=== PATIENT | male | born 1950 | race Caucasian/White ===

== ENCOUNTER 2021-06-08 17:03 | Outpatient (REF) | payer OTHER, SELFPAY ==
[2021-06-08 21:47] LABS: ALT 22 U/L (16-63); AST 14 U/L (15-37); Albumin 4.1 g/dL (3.4-5.0); Alkaline Phosphatase 119 U/L (46-116); Anion Gap 3.1 mmol/L (3-11); BUN 19 mg/dL (7-18); Bilirubin, Total 0.6 mg/dL (0.2-1.0); CO2 30.9 mmol/L (21.0-32.0); CREATININE 0.8 mg/dL (0.70-1.30); Calcium 9.4 mg/dL (8.5-10.1); Calculated LDL 48 mg/dL (<100); Chloride 108 mmol/L (98-107); Cholesterol 101 mg/dL (<200); Glucose 90 mg/dL (74-106); HDL Cholesterol 37 mg/dL (40-60); Potassium 4.1 mmol/L (3.5-5.1); Sodium 142 mmol/L (136-145); Triglyceride 84 mg/dL (<150)
== END 2021-06-08 17:04 | disposition home or self-care (01) ==
LOC: NCHCN 17:03
PROVIDERS: PCP Nurse Practitioner Family; Visit Provider Nurse Practitioner Family
DX: E78.5 Hyperlipidemia, unspecified (principal); Z79.899 Other long term (current) drug therapy
CPT/HCPCS: 80053; 80061

== ENCOUNTER 2021-09-14 18:49 | Outpatient (REF) | payer MEDICARE, SELFPAY ==
[2021-09-14 22:20] LABS: ALT 36 U/L (16-63); AST 23 U/L (15-37); Albumin 4.2 g/dL (3.4-5.0); Alkaline Phosphatase 103 U/L (46-116); Bilirubin, Direct 0.2 mg/dL (0.0-0.2); Bilirubin, Total 0.7 mg/dL (0.2-1.0); GGT 32 U/L (15-85)
[2021-09-14 22:38] LABS: Vitamin D 25 Total 6.7 ng/mL (30-100)
== END 2021-09-14 18:50 | disposition home or self-care (01) ==
LOC: NCHCN 18:49
PROVIDERS: PCP Nurse Practitioner Family; Visit Provider Nurse Practitioner Family
DX: R74.8 Abnormal levels of other serum enzymes (principal); E83.39 Other disorders of phosphorus metabolism
CPT/HCPCS: 80076; 82306; 82977

== ENCOUNTER 2021-11-13 16:00 | Outpatient (REF) | payer MEDICARE, SELFPAY ==
[2021-11-13 22:11] LABS: Vitamin D 25 Total 24.9 ng/mL (30-100)
== END 2021-11-13 16:01 | disposition home or self-care (01) ==
LOC: NCHCN 16:00
PROVIDERS: PCP Nurse Practitioner Family; Visit Provider Nurse Practitioner Family
DX: E55.9 Vitamin D deficiency, unspecified (principal)
CPT/HCPCS: 82306

== ENCOUNTER 2022-06-25 17:46 | Outpatient (REF) | payer MEDICARE, SELFPAY ==
[2022-06-25 21:04] LABS: ALT 18 U/L (16-63); AST 14 U/L (15-37); Albumin 4.1 g/dL (3.4-5.0); Alkaline Phosphatase 93 U/L (46-116); Anion Gap 6.7 mmol/L (3-11); BUN 18 mg/dL (7-18); Bilirubin, Total 0.4 mg/dL (0.2-1.0); CO2 29.3 mmol/L (21.0-32.0); CREATININE 0.8 mg/dL (0.70-1.30); Calcium 9.7 mg/dL (8.5-10.1); Calculated LDL 50 mg/dL (<100); Chloride 108 mmol/L (98-107); Cholesterol 104 mg/dL (<200); Estimated GFR 93.45 (mL/min/1.73m2); Glucose 85 mg/dL (74-106); HDL Cholesterol 40 mg/dL (40-60); Potassium 4.3 mmol/L (3.5-5.1); Sodium 144 mmol/L (136-145); Total Protein 7.1 g/dL (6.4-8.2); Triglyceride 74 mg/dL (<150)
[2022-06-26 22:25] LABS: PSA, Diagnostic 14.7 ng/mL (<=6.5)
== END 2022-06-25 17:47 | disposition home or self-care (01) ==
LOC: NCHCN 17:46
PROVIDERS: PCP Nurse Practitioner Family; Visit Provider Nurse Practitioner Family
DX: E78.5 Hyperlipidemia, unspecified (principal); R97.20 Elevated prostate specific antigen [PSA]
CPT/HCPCS: 80053; 80061; 84153

== ENCOUNTER 2023-01-02 10:59 | Outpatient (REF) | payer MEDICARE, SELFPAY ==
[2023-01-02 22:17] LABS: PSA, Diagnostic 10.8 ng/mL (<=6.5)
== END 2023-01-02 11:00 | disposition home or self-care (01) ==
LOC: NCHCN 10:59
PROVIDERS: Family Medicine; PCP Nurse Practitioner Family; Visit Provider Family Medicine
DX: R97.20 Elevated prostate specific antigen [PSA] (principal)
CPT/HCPCS: 84153

== ENCOUNTER 2024-06-29 09:43 | Outpatient (REF) | payer MEDICARE, SELFPAY | END 2024-06-29 09:44 | disposition home or self-care (01) | LOC: LBN 09:43 | PROVIDERS: PCP Nurse Practitioner Family; Visit Provider Urology | DX: C61 Malignant neoplasm of prostate (principal) | CPT/HCPCS: 84153 ==

== ENCOUNTER 2024-12-22 16:39 | Outpatient (REF) | payer MEDICARE, SELFPAY ==
[2024-12-23 18:05] LABS: PSA, Diagnostic 11.6 ng/mL (<=6.5)
== END 2024-12-22 16:40 | disposition home or self-care (01) ==
LOC: LBN 16:39
PROVIDERS: PCP Urology; Visit Provider Urology
DX: C61 Malignant neoplasm of prostate (principal)
CPT/HCPCS: 84153

== ENCOUNTER 2025-05-19 16:57 | Outpatient (REF) | payer MEDICARE, SELFPAY ==
[2025-05-20 18:16] LABS: PSA, Diagnostic 13.2 ng/mL (<=6.5)
== END 2025-05-19 16:58 | disposition home or self-care (01) ==
LOC: LBN 16:57
PROVIDERS: PCP Urology; Visit Provider Urology
DX: R97.20 Elevated prostate specific antigen [PSA] (principal)
CPT/HCPCS: 84153